=== PATIENT | male | born 1970 | race Caucasian/White ===

== ENCOUNTER 2021-05-07 18:32 | Emergency (ER) | payer SELFPAY ==
[~2021-05-07] VITALS: Ht 180.3 cm; Wt 95.5 kg
[2021-05-07 19:46] VITALS: BP 165/104
--- NOTE | 2021-05-07 19:55 | PHYS DOC ---
Past History Additional Past Medical Histor: HERNIATED DISC Past Surgical History: No Surgical History General Adult EDM: Chief Complaint: EYE PROBLEMS HPI: HPI: ".. I was making some weapons this morning. .. was welding some of aluminum. but tonight my eye started burning.. and seem to keep getting worse.." Patient is a 50 year old male who presents with above hx and complaints of bilateral eye injury. Patient's visual acuity is 20/40 both eyes with wearing his glasses. 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 Patient denies any history immunosuppression. No recent travel. No [place] ill contacts. Patient does not remember his last tetanus vaccination. Patient complains of photophobia and burning eyes. Review of Systems: Review of Systems: Constitutional: Denies fever or chills Eyes: Complains of bilateral eye pain HENT: Denies nasal congestion or sore throat Respiratory: Denies cough or shortness of breath Cardiovascular: Denies chest pain or edema GI: Denies abdominal pain, nausea, vomiting, bloody stools or diarrhea : Denies dysuria Musculoskeletal: Denies back pain or joint pain Integument: Denies rash Neurologic: Denies headache, focal weakness or sensory changes Endocrine: Denies polyuria or polydipsia Lymphatic: Denies swollen glands Psychiatric: Denies depression or anxiety Family History: Family History: Noncontributory Current Medications: Current Meds: See nursing for home meds Allergies: Allergies: Allergies Coded Allergies Type Severity Reaction Last Updated Verified No Known Drug Allergies 05/07/21 No Physical Exam: PE: Constitutional: in acute distress, non-toxic appearance. [] HENT: Normocephalic, atraumatic, bilateral external ears normal, oropharynx moist, no oral exudates, nose normal. [] Eyes: PERRLA, EOMI, conjunctiva injected, no limbus injection, does have photophobia, no discharge. Had significant fluorescein uptake in both eyes. No appreciable field defects. Neck: Normal range of motion, no tenderness, supple, no stridor. [] Cardiovascular:Heart rate regular rhythm, no murmur [] Lungs & Thorax: Bilateral breath sounds equal apex on auscultation [] Abdomen: Bowel sounds normal, soft, no tenderness, no masses, no pulsatile masses. [] Skin: Warm, dry, no erythema, no rash. [] Back: No tenderness, no CVA tenderness. [] Extremities: No tenderness, no cyanosis, no clubbing, ROM intact, no edema. [] Neurologic: Alert and oriented X 3, normal motor function, normal sensory function, no focal deficits noted. [] Psychologic: Affect normal, judgement normal, mood depressed Current Patient Data: Vital Signs: Vital Signs Date Time Temp Pulse Resp B/P (MAP) Pulse Ox O2 Delivery O2 Flow Rate FiO2 05/07/21 19:46 97.8 100 18 165/104 100 Room Air EKG: EKG: [] Radiology/Procedures: Radiology/Procedures: [] Heart Score: C/O Chest Pain: N/A Risk Factors: Risk Factors: DM, Current or recent (<one month) smoker, HTN, HLP, family history of CAD, obesity. Risk Scores: Score 0 - 3: 2.5% MACE over next 6 weeks - Discharge Home Score 4 - 6: 20.3% MACE over next 6 weeks - Admit for Clinical Observation Score 7 - 10: 72.7% MACE over next 6 weeks - Early Invasive Strategies Course & Med Decision Making: Course & Med Decision Making Pertinent Labs and Imaging studies reviewed. (See chart for details) Patient must follow-up with ophthalmology. If he does not have an director financial analysis call Dr. Umanzor [phone]. Use a small amount erythromycin to both eyes 4 times a day. May use Toradol eyedrops 1 drop to each eye 4 times a day for pain. Take Tylenol and ibuprofen. Must follow-up. Impression"; 1. Bilateral cornea-welding escudero UV light from welding aluminum. [] Dragon Disclaimer: Dragon Disclaimer: This electronic medical record was generated, in whole or in part, using a voice recognition dictation system. Departure Departure: Referrals: PCP,NO (PCP) Scripts Hydrocodone/Ibuprofen (HYDROCODONE-IBUPROFEN 7.5-200 ) 1 Each Tablet 1 TAB PO PRN Q6HRS PRN for PAIN, #30 TAB 0 Refills Prov: MONICA VALIENTE MD 05/07/21 Sulfacetamide/Prednisolone Sp (SULF-PRED 10-0.23% EYE DROPS) 5 Ml Drops 1 DROP EACHEYE TID for kerititis, #5 ML 0 Refills Prov: MONICA VALIENTE MD 05/07/21 Dragon Disclaimer This chart was dictated in whole or in part using Voice Recognition software in a busy, high-work load, and often noisy Emergency Department environment. It may contain unintended and wholly unrecognized errors or omissions. MONICA VALIENTE MD May 07, 2021 19:55
[2021-05-07] MEDS ORDERED: MORPHINE SULFATE 10 MG/ML SYRINGE. SQ ONE (20:15)
[2021-05-07] MEDS ORDERED: KETOROLAC TROMETHAMINE 0.5% OPHTH SOLUTION BOTTLE. OU ONE (20:15)
[2021-05-07] MEDS ORDERED: ERYTHROMYCIN 0.5% OPHTH OINTMENT 1GM TUBE. OU ONE ×2 (20:30→20:45)
[2021-05-07] MEDS ORDERED: TETRACAINE 0.5% OPHTH SOLUTION 4ML BOTTLE. OU ONE (20:30)
[2021-05-07] MEDS ORDERED: FLUORESCEIN 1MG EYE STRIP. OU ONE (20:30)
[2021-05-07] MEDS ORDERED: SULF5DRO4 EACHEYE (20:35)
[2021-05-07] MEDS ORDERED: HYDR-1179 PO (20:41)
[2021-05-07] MEDS ORDERED: KETOROLAC 60 MG/2 ML VIAL. IM ONE (20:45)
== END 2021-05-07 21:05 | disposition home or self-care (01) ==
LOC: ER 18:32
DX: T26.12XA Burn of cornea and conjunctival sac, left eye, initial encounter (principal); T26.11XA Burn of cornea and conjunctival sac, right eye, initial encounter; T75.09XA Other effects of lightning, initial encounter; Y93.89 Activity, other specified; Y92.89 Other specified places as the place of occurrence of the external cause; Y99.8 Other external cause status
CPT/HCPCS: 96372; 99284; J1885; J2270